=== PATIENT | male | born 2005 | race Caucasian/White ===

== ENCOUNTER 2024-10-20 18:53 | Emergency (ER) | payer OTHER ==
[2024-10-20 19:59] LABS: #Basophils 0.03 10x3/uL (0.0-0.2); #Eosinophils Less than 0.03 10x3/uL (0.0-0.5); #Monocytes 1.16 10x3/uL (0.0-1.1); #Neutrophils 11.81 10x3/uL (1.5-8.4); %Basophils 0.2 % (0.0-2.0); %Eosinophils 0.1 % (0.0-6.0); %Lymphocytes 10.5 % (18.0-47.0); %Monocytes 8.0 % (0.0-10.0); %Neutrophils 80.9 % (40.0-75.0); Hematocrit 37.4 % (38.8-50.0); Hemoglobin 13.0 g/dL (13.5-17.5); Mean Corpuscular Hemoglobin 29.5 pg (27.0-33.0); Mean Corpuscular Volume 85.0 fL (81.2-95.1); Platelet Count 343 10x3/uL (150-450); Red Blood Cell (RBC) Count 4.40 10x6/uL (4.32-5.72); White Blood Cell (WBC) Count 14.58 10x3/uL (3.5-10.5)
[2024-10-20] MEDS ORDERED: Ondansetron PF 4 MG/2 ML Vial ONE (20:06)
[2024-10-20 20:20] LABS: ALT (SGPT) 72 U/L (Less than 45); AST (SGOT) 70 U/L (11-34); Albumin 4.8 g/dL (3.1-4.5); Alkaline Phosphatase 44 U/L (40-110); Anion Gap 19 mmol/L (10-20); BUN (Urea Nitrogen) 17 mg/dL (8.9-20.6); Bilirubin, Total 1.6 mg/dL (0.3-1.2); Calc. Creatinine Clearance 0 mL/min (70-130); Calcium 9.4 mg/dL (7.8-10.44); Carbon Dioxide 23 mmol/L (22-29); Chloride 96 mmol/L (98-107); Globulin 3.5 g/dL (2.4-3.5); Glucose 111 mg/dL (70-105); Lipase 23 U/L (8-78); Potassium 3.9 mmol/L (3.5-5.1); Sodium 134 mmol/L (136-145)
[2024-10-20 21:38] LABS: Glucose, Urine (Dipstick) Normal (Negative); Leukocyte Negative (Negative); Protein, Urine (Dipstick) 15 mg/dl (Neg-Trace); Specific Gravity, Urine 1.020 (1.005-1.030)
[2024-10-20 21:59] LABS: Bacteria/HPF Rare-Few HPF (None Seen); CAUTI Indications for Culture Dysuria,urgency,freq; RBC/HPF 0-3 HPF (0-3); WBC/HPF 0-3 HPF (0-3)
[2024-10-20 22:00] LABS: Urine Culture Reflex No No
== END 2024-10-20 22:47 | disposition home or self-care (01) ==
LOC: CSHERS 18:53
DX: R11.2 Nausea with vomiting, unspecified (principal)
CPT/HCPCS: 80053; 81001; 83690; 85025; 93005; 96361; 96374; J2405